=== PATIENT | male | born 1970 | race Two or more races ===

== ENCOUNTER 2018-10-25 21:25 | Emergency (ER) | payer MEDICAID ==
--- NOTE | 2018-10-25 21:37 | NUR ---
PATIENT [id number] FROM [place] FOR [facility], PATIENT DID NOT WANT TO STAY AND WALKED OUT BEFORE TRIAGE. PATIENT [id number].
== END 2018-10-25 21:38 | disposition left against medical advice (07) ==
LOC: ER 21:28
DX: Z53.21 Procedure and treatment not carried out due to patient leaving prior to being seen by health care provider (principal)